=== PATIENT | female | born 1955 | race Caucasian/White ===

== ENCOUNTER 2018-09-22 19:57 | Inpatient (IN) | payer SELFPAY ==
[~2018-09-22] VITALS: Ht 170.2 cm; Wt 83.4 kg
--- NOTE | 2018-09-22 21:13 | ERD ---
ER Documentation Chief Complaint Chief Complaint chest pain/vomiting x 1 day HPI This is a 62-year-old male who presents for evaluation of epigastric pain, rating to right lower quadrant, also presents with nausea and vomiting. She endorses a dizziness sensation, that feels like she is about to faint. She denies fever, contrary to triage note, she denies chest pain. There are no alleviating or aggravating factors, symptoms are constant. ROS All systems reviewed and are negative except as per history of present illness. Allergies Allergies: Coded Allergies: No Known Drug Allergies (Verified Allergy, Unknown, 09/22/18) Physical Exam Vitals Vital Signs Date Temp Pulse Resp B/P (MAP) Pulse Ox O2 O2 Flow FiO2 Time Delivery Rate 09/22/18 98.8 79 18 175/88 96 20:19 (117) Physical Exam Const: Well-developed, well-nourished Head: Atraumatic Eyes: Normal Conjunctiva ENT: Normal External Ears, Nose and Mouth. Neck: Full range of motion. No meningismus. Resp: Clear to auscultation bilaterally Cardio: Regular rate and rhythm, no murmurs Abd: Soft, right upper quadrant tenderness, no rebound or guarding, non distended. Normal bowel sounds Skin: No petechiae or rashes Back: No midline or flank tenderness Ext: No cyanosis, or edema Neur: Awake and alert Psych: Normal Mood and Affect Result Diagram: 09/22/18210609/22/182106 Results 24 hrs Laboratory Tests Test 09/22/18 21:07 White Blood Count 11.8 10^3/ul Red Blood Count 4.40 10^6/ul Hemoglobin 12.1 g/dl Hematocrit 36.9 % Mean Corpuscular Volume 83.9 fl Mean Corpuscular Hemoglobin 27.5 pg Mean Corpuscular Hemoglobin Concent 32.8 g/dl Red Cell Distribution Width 14.1 % Platelet Count 434 10^3/UL Mean Platelet Volume 9.7 fl Immature Granulocytes % 0.300 % Neutrophils % 76.5 % Lymphocytes % 17.2 % Monocytes % 5.4 % Eosinophils % 0.3 % Basophils % 0.3 % Nucleated Red Blood Cells % 0.0 /100WBC Immature Granulocytes # 0.040 10^3/ul Neutrophils # 9.0 10^3/ul Lymphocytes # 2.0 10^3/ul Monocytes # 0.6 10^3/ul Eosinophils # 0.0 10^3/ul Basophils # 0.0 10^3/ul Nucleated Red Blood Cells # 0.0 10^3/ul Sodium Level 141 mmol/L Potassium Level 3.9 mmol/L Chloride Level 105 mmol/L Carbon Dioxide Level 27 mmol/L Anion Gap 9 Blood Urea Nitrogen 16 mg/dl Creatinine 0.75 mg/dl Est Glomerular Filtrat Rate mL/min > 60 mL/min Glucose Level 137 mg/dl Calcium Level 9.6 mg/dl Total Bilirubin 0.6 mg/dl Direct Bilirubin 0.00 mg/dl Indirect Bilirubin 0.6 mg/dl Aspartate Amino Transf (AST/SGOT) 23 IU/L Alanine Aminotransferase (ALT/SGPT) 31 IU/L Alkaline Phosphatase 92 IU/L Troponin I < 0.012 ng/ml B-Type Natriuretic Peptide 339 PG/ML Total Protein 8.7 g/dl Albumin 4.4 g/dl Globulin 4.30 g/dl Albumin/Globulin Ratio 1.02 Lipase 66 U/L Current Medications Medications Dose Sig/Josy Start Time Status Last (Trade) Ordered Route PRN Stop Time Admin Dose Reason Admin Sodium 1,000 ml @ Q1H STAT 09/22/18 DC 09/22/18 Chloride 1,000 mls/hr IV 21:33 21:55 09/22/18 22:32 Morphine 4 mg ONCE STAT 09/22/18 DC 09/22/18 Sulfate IV 21:33 21:55 (morphine) 09/22/18 21:35 Ondansetron 4 mg ONCE STAT 09/22/18 DC 09/22/18 HCl (Zofran IV 21:33 21:55 Inj) 09/22/18 21:35 Ceftriaxone 50 ml @ ONCE ONCE 09/22/18 09/22/18 Sodium 100 mls/hr IVPB 23:30 23:21 09/22/18 23:59 500 mg ONCE ONCE 09/22/18 DC 09/22/18 Metronidazole PO 23:30 23:44 (Flagyl) 09/22/18 23:31 Meclizine 25 mg ONCE ONCE 09/22/18 DC 09/22/18 HCl PO 23:30 23:44 (Antivert) 09/22/18 23:31 Procedures/MDM 62-year-old male presents for evaluation of epigastric pain. Labs and ultrasound ordered to evaluate for acute cholecystitis, this was negative on ultrasound, she had a mild leukocytosis, and CT abdomen pelvis was performed which showed colitis, otherwise unremarkable. She also complained of dizziness, though described as vertiginous, her CT brain did not show any acute findings, and she had no other neurologic deficits to suggest a central process for her symptoms. I discussed findings with the patient and her daughter, she was given a dose of IV ceftriaxone, however she has been unable to tolerate oral intake, and and that she will require admission for p.o. intolerance, otherwise treatment of her colitis. Accepting Care Team: Current data and ongoing care discussed. Primary: Jose Consulting: None Outstanding Data: none EKG: Rate/Rhythm: Normal Sinus Rhythm QRS, ST, T-waves: Incomplete right bundle branch block no changes consistent w/ acute ischemia Impression: No evidence of ischemia or arrhythmia Departure Diagnosis: Primary Impression: Epigastric pain Condition: Stable RENE BATES MD September 22, 2018 21:13
[2018-09-22] MEDS ORDERED: ONDANSETRON 4 MG INJ IV STA (21:33)
[2018-09-22] MEDS ORDERED: SOD CHLORIDE 0.9% 1,000 ML IV STA (21:33)
[2018-09-22] MEDS ORDERED: morphine 4 MG/ML VIAL IV STA (21:33)
[2018-09-22] MEDS ORDERED: CEFTRIAXONE 1 GM/50 ML (PMX) 50 ML IVPB ONE (23:30)
[2018-09-22] MEDS ORDERED: MECLIZINE 12.5 MG TAB PO ONE (23:30)
[2018-09-22] MEDS ORDERED: metroNIDAZOLE 500 MG TAB PO ONE (23:30)
[2018-09-23] MEDS ORDERED: ATEN-51 PO (00:01)
[2018-09-23 01:05] VITALS: Ht 170.2 cm; Wt 83.4 kg
[2018-09-23 01:10] VITALS: BP 168/73; PULSE 70; RESP 18
--- NOTE | 2018-09-23 01:51 | HP ---
Date/Time of Note Date/Time of Note DATE: 09/23/18 TIME: 01:40 Assessment/Plan VTE Prophylaxis Pharmacological prophylaxis: NA/contraindicated Pharm contraindication: low risk/ambulating Lines/Catheters IV Catheter Type (from Nrs): Saline Lock Assessment/Plan Assessment/Plan 62 yo woman with history of HTN presents with acute gastroenteritis, PO intolerance #Acute gastroenteritis - After eating bad beef - Probably viral, from preformed bacterial toxin, less likely could be true allergy to an ingredient in the marinade - Very unlikely to be shigella, E Coli, or other bacterial colitis requiring antibiotics in the absence of diarrhea. Will stop antibiotics. - Start clear liquids - Protonix PO - Zofran prn - If still PO intolerant in AM, start IV fluids. #HTN - Cont atenolol DVT: SCDs GI: PPI Result Diagram: 09/22/18210609/22/182106 HPI/ROS Admit Date/Time Admit Date/Time September 22, 2018 at 23:57 Hx of Present Illness Ms. Velázquez is a 62 yo Iranian-speaking woman history of HTN who presents with vertigo and vomiting. She was in her usual state of health until this afternoon, when she ate some barbecued beef. She has had problems with this beef before and thinks she has an allergy to it. She developed vertigo then had nausea, fever, and vomiting. Also had epigastric pain. She presented to the ED. In the ED she continued to vomit, had PO intolerance. She was hypertensive to 175/88, otherwise vitals normal. Mild leukocytosis to 11.8 otherwise labs unremarkable. ROS She denies recent chills, night sweats, anorexia, weight loss, dyspnea, cough, chest pain/pressure, palpitations, diarrhea, constipation, dysuria, hematuria. PMH/Family/Social Past Medical History Medical History: hypertension Medications Atenolol BID, unknown dose Bisacodyl "Medicine for my stomach" Coded Allergies: No Known Drug Allergies (Verified Allergy, Unknown, 09/22/18) Past Surgical History Past Surgical Hx: no surgical history Social History Alcohol Use: none Smoking Status: Never smoker Drug Use: none Exam/Review of Systems Vital Signs Vitals Vital Signs Date Temp Pulse Resp B/P (MAP) Pulse Ox O2 O2 Flow FiO2 Time Delivery Rate 09/23/18 72 16 139/63 100 High Flow 01:00 (88) 09/22/18 98.8 20:19 Exam Exam Gen: Obese woman awake and alert, no acute distress. Eyes: PERRL, no icterus HEENT: Moist mucous membranes, clear oropharynx Neck: Supple, no lymphadenopathy, no JVD Card: Regular rate and rhythm, 2/6 systolic ejection murmur Pulm: Clear to auscultation bilaterally Abd: Soft, nondistended. Moderate epigastric tenderness to palpation. No hepatosplenomegaly. Ext: No cyanosis/clubbing/edema, good peripheral pulses. Skin: warm, dry, well perfused. YOHAN MACHADO MD Sep 23, 2018 01:51
[2018-09-23] MEDS ORDERED: ONDANSETRON 4 MG INJ IV PRN (02:00)
[2018-09-23] MEDS ORDERED: NACL 0.9% 3 ML SYG IV SCH (02:00)
[2018-09-23] MEDS ORDERED: ACETAMINOPHEN 325 MG TAB PO PRN (02:00)
[2018-09-23] MEDS: ONDANSETRON 4 MG INJ IV PRN ×2 (03:09→09:21)
[2018-09-23] MEDS ORDERED: PANTOPRAZOLE (EC) 40 MG TAB PO SCH (06:00)
[2018-09-23 08:00] VITALS: BP 143/64; PULSE 61; RESP 18
[2018-09-23] MEDS ORDERED: ATENOLOL 25 MG TAB PO SCH (09:00)
[2018-09-23 14:00] VITALS: BP 136/60; PULSE 62; RESP 18
--- NOTE | 2018-09-23 14:24 | PDOCDIS ---
Discharge Instructions DIAGNOSIS Discharge Diagnosis 1. Acute gastroenteritis 2. hypertension CONDITION [id number] Patient Condition: [id number] Stable HOME CARE INSTRUCTIONS: [id number] Diet Instructions: [id number] Low Fat /Cholesterol FOLLOW UP/APPOINTMENTS Follow-up Plan 1. Follow up with your primary care provider in one week LYNDSAY BENDER NP Sep 23, 2018 14:24
[2018-09-23] MEDS ORDERED: ONDA4TAB13 PO (15:39)
--- NOTE | 2018-09-23 17:09 | DS ---
Date/Time of Note Date/Time of Note DATE: 09/23/18 TIME: 17:07 Discharge Summary Admission/Discharge Info Admit Date/Time September 22, 2018 at 23:57 Discharge Date/Time Sep 23, 2018 at 16:50 Discharge Diagnosis 1. Acute gastroenteritis 2. hypertension Patient Condition: Stable Hospital Course This is a 62-year-old female with history of hypertension and vertigo who came to [facility] due to reports of vomiting. She reports that she was in her normal state of health until the afternoon prior to admission when she had eaten a piece of barbecued beef. She states that she is allergic to beef and pork and suspects that this might be at the cause of her vomiting and abdominal discomfort. She did come to the hospital for further evaluation and upon examination had a CT scan of the abdomen and pelvis showing her to have diffuse mural thickening of descending and rectosigmoid portions of the colon consistent with mild nonspecific colitis. She was placed on IV fluids and given antibiotic as well. CT scan of the brain was negative for any acute findings. Gallbladder ultrasound was also done that showed small gallstones with no CBD dilation. After assessment and evaluation patient likely her gastroenteritis was viral in etiology. Antibiotics were stopped and we did advance her diet to good response. She denies any abdominal pain or nausea vomiting on the day of her discharge. She was resumed on her atenolol for outpatient. The plan of care was discussed with the patient and patient verbalized understanding. On the day of discharge patient was in stable condition Discussed plan of care with Dr. Tovar [facility] Active Scripts Ondansetron Hcl* (Zofran*) 4 Mg Tab, 4 MG PO Q4H PRN for NAUSEA AND OR VOMITING, #30 TAB Prov:LYNDSAY BENDER PATROL SERGEANT 09/23/18 Reported Medications Atenolol* (Atenolol*) Unknown Strength Tablet, PO BID, #60 TAB 09/23/18 Follow-up Plan 1. Follow up with your primary care provider in one week Primary Care Provider Care Physician No Primary Time spent on discharge: > 30 minutes Pending Labs Laboratory Tests Test 09/22/18 21:07 09/23/18 03:39 09/23/18 10:15 White Blood Count 11.8 10^3/ul (4.8-10.8) Red Blood Count 4.40 10^6/ul (4.20-5.40) Hemoglobin 12.1 g/dl (12.0-16.0) Hematocrit 36.9 % (37.0-47.0) Mean Corpuscular 83.9 Volume fl (82.0-101.0) Mean Corpuscular 27.5 pg (29.0-33.0) Hemoglobin Mean Corpuscular 32.8 Hemoglobin Concent g/dl (32.0-37.0) Red Cell 14.1 % (11.5-14.5) Distribution Width Platelet Count 434 10^3/UL (140-415) Mean Platelet 9.7 fl (7.4-10.4) Volume Immature 0.300 Granulocytes % % (0.001-0.429) Neutrophils % 76.5 % (39.0-77.0) Lymphocytes % 17.2 % (15.0-51.0) Monocytes % 5.4 % (0.0-11.0) Eosinophils % 0.3 % (0.0-7.0) Basophils % 0.3 % (0.0-2.0) Nucleated Red Blood 0.0 Cells % /100WBC (0.0-0.0) Immature 0.040 Granulocytes # 10^3/ul (0.0-0.031) Neutrophils # 9.0 10^3/ul (1.6-7.5) Lymphocytes # 2.0 10^3/ul (0.8-2.9) Monocytes # 0.6 10^3/ul (0.3-0.9) Eosinophils # 0.0 10^3/ul (0.0-0.5) Basophils # 0.0 10^3/ul (0.0-0.1) Nucleated Red Blood 0.0 Cells # 10^3/ul (0.0-0.0) Sodium Level 141 mmol/L (135-144) Potassium Level 3.9 mmol/L (3.5-5.1) Chloride Level 105 mmol/L (97-110) Carbon Dioxide 27 mmol/L (21-31) Level Anion Gap 9 (5-13) Blood Urea 16 mg/dl (7-20) Nitrogen Creatinine 0.75 mg/dl (0.44-1.00) Est Glomerular > 60 mL/min (>60) Filtrat Rate mL/min Glucose Level 137 mg/dl (70-220) Calcium Level 9.6 mg/dl (8.4-10.2) Total Bilirubin 0.6 mg/dl (0.2-1.3) Direct Bilirubin 0.00 mg/dl (0.00-0.20) Indirect Bilirubin 0.6 mg/dl (0-1.1) Aspartate Amino 23 IU/L (15-46) Transf (AST/SGOT) Alanine 31 IU/L (13-69) Aminotransferase (A LT/SGPT) Alkaline 92 IU/L (42-121) Phosphatase Troponin I < 0.012 < 0.012 < 0.012 ng/ml (0.000-0.120) ng/ml (0.000-0.120 ng/ml (0.000-0.120 ) ) B-Type Natriuretic 339 PG/ML (0-125) Peptide Total Protein 8.7 g/dl (6.1-8.1) Albumin 4.4 g/dl (3.3-4.9) Globulin 4.30 g/dl (1.3-3.2) Albumin/Globulin 1.02 Ratio Lipase 66 U/L (23-300) Creatine Kinase 63 IU/L (23-200) 55 IU/L (23-200) Creatine Kinase 1.0 1.0 Index Creatinine Kinase 0.64 0.57 MB (Mass) ng/ml (0.0-2.4) ng/ml (0.0-2.4) LYNDSAY BENDER NP Sep 23, 2018 17:09
== END 2018-09-23 16:50 | disposition home or self-care (01) | DRG 392 ==
LOC: E/R 19:57 → PP2 23:57 → SUATTDRO 09-23 00:05
PROVIDERS: ADMIT Internal Medicine; ATTEND Internal Medicine
DX: K52.9 Noninfective gastroenteritis and colitis, unspecified (principal); I10 Essential (primary) hypertension
CPT/HCPCS: 70450; 71045; 74176; 76705; 80053; 82550; 82553; 83690; 83880; 84484; 85025; 93005; 96374; 96375; J0696; J2270; J2405; J7030